=== PATIENT | female | born 1960 | race Caucasian/White ===

== ENCOUNTER 2019-09-10 08:25 | Day surgery (SDC) | payer OTHER ==
[~2019-09-10 08:25] MED LIST: ACETAMINOPHEN PO; TOPROL XL25 M1 PO
== END 2019-09-11 02:50 | disposition home or self-care (01) ==
LOC: CIR.AMB 08:25 → ADM 11:00 → CIR.AMB 09-11 02:50
PROVIDERS: ATTEND Obstetrics & Gynecology
DX: N84.0 Polyp of corpus uteri (principal); Z20.828 Contact with and (suspected) exposure to other viral communicable diseases

== ENCOUNTER 2024-03-16 09:09 | Outpatient (CLI) | payer OTHER | END 2024-03-16 09:13 | disposition home or self-care (01) | LOC: SONOGRAMA 09:09 | PROVIDERS: ATTEND Obstetrics & Gynecology | DX: N84.0 Polyp of corpus uteri (principal) ==